=== PATIENT | male | born 1990 | race Caucasian/White ===

== ENCOUNTER 2020-09-02 23:44 | Inpatient (IN) | payer MEDICAID ==
[~2020-09-02] VITALS: Ht 162.6 cm; Wt 72.7 kg
[2020-09-03] MEDS ORDERED: acetaminophen 325mg tablet PO PRN (01:45)
[2020-09-03] MEDS: normal saline 1000ml 1,000 ML IV SCH ×5 (01:45→21:57)
[2020-09-03] MEDS ORDERED: morphine 2 MG/ML inj. syringe IV PRN ×2 (01:45)
[2020-09-03] MEDS ORDERED: magnesium hydroxide 30ml (MOM) UD suspension PO PRN (01:45)
[2020-09-03] MEDS ORDERED: ondansetron/PF 4mg/2ml inj IV PRN (01:45)
[2020-09-03] MEDS ORDERED: mag hydrox/Alum hydrox/simeth 30ml oral suspension PO PRN (01:45)
[2020-09-03] MEDS ORDERED: NO HOME MEDS (02:07)
[2020-09-03 02:48] VITALS: BP 124/74
--- NOTE | 2020-09-03 02:54 | NUR ---
Patient falling asleep. Unable to DART at this time.
--- NOTE | 2020-09-03 06:24 | NUR ---
Problems reprioritized. Patient report given, questions answered & plan of care reviewed with CARLOS Arce.
--- NOTE | 2020-09-03 06:38 | NUR ---
Patient in room KEE 347. I have received report from Simona Donald RN and had the opportunity to ask questions and assume patient care.
[2020-09-03 08:00] VITALS: BP 126/78
--- NOTE | 2020-09-03 10:00 | NUR ---
Dr Mcclure rounded on pt. MD will review CT scan from Denise Al.
[2020-09-03 11:00] VITALS: BP 120/75
[2020-09-03 12:32] LABS: BASOPHILS # (AUTO) 0.1 X10'3 (0-0.2); EOSINOPHILS # (AUTO) 0.2 X10'3 (0-0.9); EOSINOPHILS % (AUTO) 2.5 % (0-6); HEMATOCRIT 41.5 % (42.0-52.0); HEMOGLOBIN 13.9 g/dl (14.0-17.9); LYMPHOCYTES # (AUTO) 1.5 X10'3 (1.1-4.8); LYMPHOCYTES % (AUTO) 16.1 % (21-51); MEAN CORPUSCULAR HEMOGLOBIN 29.8 PG (27.0-31.0); MEAN CORPUSCULAR HGB CONC 33.4 g/dL (33.0-36.5); MEAN CORPUSCULAR VOLUME 89.3 FL (78-98); MONOCYTES # (AUTO) 0.7 X10'3 (0-0.9); MONOCYTES % (AUTO) 7.6 % (2-12); NEUTROPHILS # (AUTO) 6.7 X10'3 (1.8-7.7); NEUTROPHILS % (AUTO) 72.8 % (42-75); PLATELET COUNT 300 X10'3 (140-440); RED BLOOD COUNT 4.65 X10'6 (4.70-6.10); RED CELL DISTRIBUTION WIDTH 14.9 % (11.5-14.5); WHITE BLOOD COUNT 9.2 X10'3 (4.5-11.0)
[2020-09-03 12:47] LABS: ALANINE AMINOTRANSFERASE 22 U/L (12-78); ALBUMIN/GLOBULIN RATIO 0.8 (1.1-1.5); ALKALINE PHOSPHATASE 57 IU/L (46-116); ANION GAP 9 (8-16); ASPARTATE AMINO TRANSFERASE 19 U/L (10-37); BILIRUBIN,TOTAL 0.8 MG/DL (0.1-1.0); BLOOD UREA NITROGEN 12 MG/DL (7-18); BUN/CREATININE RATIO 12.2 (5.4-32.0); CALCIUM 8.3 MG/DL (8.5-10.1); CHLORIDE 106 MMOL/L (99-107); CREATININE 0.98 MG/DL (0.60-1.10); GLUCOSE 88 MG/DL (70-104); POTASSIUM 3.9 MMOL/L (3.5-5.1); SODIUM 141 MMOL/L (135-145); TOTAL CARBON DIOXIDE 25.6 MMOL/L (24-32); TOTAL PROTEIN 6.7 G/DL (6.4-8.2); eGFR 89 ML/MIN
[2020-09-03] MEDS ORDERED: ACET-1008 PO (15:49)
--- NOTE | 2020-09-03 16:02 | NUR ---
D/C order on hold until tomorrow. Pt needs CT scan tomorrow morning. Dr annalisa isabel.
--- NOTE | 2020-09-03 17:44 | NUR ---
PAGER ID: [phone] MESSAGE: Karey med/surg [id number]. Pt: Conrad. Rm: 347-B Smokes 1 pck of cigarette/day. Requesting Nicotine patch. thanks
--- NOTE | 2020-09-03 18:56 | NUR ---
Problems reprioritized. Patient report given, questions answered & plan of care reviewed with CARLOS Weaver.
[2020-09-03 19:00] VITALS: BP 108/75
[2020-09-03] MEDS: diatr meglu/diatrizoate 30ml oral sol.-(3 dose) bottle PO SCH (21:13)
[2020-09-04] VITALS: BP 119/63
[2020-09-04 05:59] LABS: BASOPHILS # (AUTO) 0.1 X10'3 (0-0.2); BASOPHILS % (AUTO) 0.9 % (0-1); EOSINOPHILS # (AUTO) 0.3 X10'3 (0-0.9); EOSINOPHILS % (AUTO) 2.9 % (0-6); HEMOGLOBIN 13.8 g/dl (14.0-17.9); LYMPHOCYTES # (AUTO) 1.8 X10'3 (1.1-4.8); LYMPHOCYTES % (AUTO) 19.4 % (21-51); MEAN CORPUSCULAR HEMOGLOBIN 29.9 PG (27.0-31.0); MEAN CORPUSCULAR HGB CONC 33.6 g/dL (33.0-36.5); MEAN CORPUSCULAR VOLUME 88.9 FL (78-98); MEAN PLATELET VOLUME 7.4 FL (7.4-10.4); MONOCYTES # (AUTO) 0.7 X10'3 (0-0.9); MONOCYTES % (AUTO) 7.4 % (2-12); NEUTROPHILS # (AUTO) 6.3 X10'3 (1.8-7.7); NEUTROPHILS % (AUTO) 69.4 % (42-75); PLATELET COUNT 303 X10'3 (140-440); RED BLOOD COUNT 4.61 X10'6 (4.70-6.10); RED CELL DISTRIBUTION WIDTH 14.8 % (11.5-14.5); WHITE BLOOD COUNT 9.1 X10'3 (4.5-11.0)
[2020-09-04 06:19] LABS: ALBUMIN 2.9 G/DL (3.4-5.0); ANION GAP 9 (8-16); BLOOD UREA NITROGEN 16 MG/DL (7-18); BUN/CREATININE RATIO 16.5 (5.4-32.0); CALCIUM 8.5 MG/DL (8.5-10.1); CHLORIDE 107 MMOL/L (99-107); CREATININE 0.97 MG/DL (0.60-1.10); GLUCOSE 91 MG/DL (70-104); POTASSIUM 4.2 MMOL/L (3.5-5.1); SODIUM 141 MMOL/L (135-145); TOTAL CARBON DIOXIDE 25.2 MMOL/L (24-32); eGFR 90 ML/MIN
--- NOTE | 2020-09-04 06:22 | NUR ---
Problems reprioritized. Patient report given, questions answered & plan of care reviewed with Gabriela GONZALEZ. Addendum: 09/04/20 at 0622 by Meg Lobato RN Amended: Links added.
[2020-09-04] MEDS: diatr meglu/diatrizoate 30ml oral sol.-(3 dose) bottle PO SCH ×2 (07:13→10:22)
[2020-09-04 07:30] VITALS: BP 126/62
[2020-09-04] MEDS ORDERED: nicotine 14mg patch - 24hr TD SCH (08:00)
[2020-09-04] MEDS ORDERED: iohexol 300mg/ml 100ml inj. ONE (10:22)
--- NOTE | 2020-09-04 11:08 | NUR ---
PAGER ID: [phone] MESSAGE: Yoan Martines 347B: CT resulted. patient requesting to DC sincere he has a 3hr drive home. thanks! [phone]
--- NOTE | 2020-09-04 12:27 | NUR ---
Patient stable and appropriate for discharge, IV removed, all belongings taken from room, new prescriptions transmitted to [facility] in [place]. [facility] transportation was in route and patient walked himself out of the hospital. Security attempted to find patient and he was gone already.
== END 2020-09-04 12:10 | disposition home or self-care (01) | DRG 247 ==
LOC: ER 23:44 → ED HOLD 09-03 01:44 → OBSVTOIN 09-03 01:44 → SUR 3N 09-03 02:20
PROVIDERS: ADMIT Family Medicine; ATTEND Internal Medicine
PROC: BW211ZZ Computerized Tomography (CT Scan) of Abdomen and Pelvis using Low Osmolar Contrast (ICD-10-PCS; principal; 2020-09-04)
DX: K56.1 Intussusception (principal); F17.200 Nicotine dependence, unspecified, uncomplicated
CPT/HCPCS: 36415; 74176; 74177; 80048; 80053; 85025; 87081; 99285; G0378; J7030; Q9963; Q9967

== ENCOUNTER 2021-05-05 01:34 | Inpatient (IN) | payer MEDICAID ==
[~2021-05-05] VITALS: Ht 162.6 cm; Wt 68.2 kg
[2021-05-05] VITALS (9 sets, daily range): BP systolic 125–139; BP diastolic 78–92
[2021-05-05] MEDS ORDERED: normal saline 1000ML IV soln IVB ONE ×2 (02:40→07:00)
[2021-05-05] MEDS ORDERED: morphine 4 MG/ML inj SYRINge IV ONE (02:40)
[2021-05-05] MEDS ORDERED: ketorolac tromethamine 15mg/ml inj. IV ONE (02:40)
[2021-05-05] MEDS ORDERED: IOHEXOL 12MG/ML oral solution 500 ML BOTTLE PO ONE (02:50)
[2021-05-05 02:55] LABS: BASOPHILS # (AUTO) 0.1 X10'3 (0-0.2); BASOPHILS % (AUTO) 0.8 % (0-1); EOSINOPHILS # (AUTO) 0.1 X10'3 (0-0.9); EOSINOPHILS % (AUTO) 1.2 % (0-6); HEMATOCRIT 41.3 % (42.0-52.0); HEMOGLOBIN 14.1 g/dl (14.0-17.9); LYMPHOCYTES # (AUTO) 1.8 X10'3 (1.1-4.8); LYMPHOCYTES % (AUTO) 17.8 % (21-51); MEAN CORPUSCULAR HEMOGLOBIN 31.6 PG (27.0-31.0); MEAN CORPUSCULAR VOLUME 92.8 FL (78-98); MEAN PLATELET VOLUME 7.2 FL (7.4-10.4); MONOCYTES # (AUTO) 0.7 X10'3 (0-0.9); MONOCYTES % (AUTO) 6.6 % (2-12); NEUTROPHILS # (AUTO) 7.6 X10'3 (1.8-7.7); NEUTROPHILS % (AUTO) 73.6 % (42-75); PLATELET COUNT 292 X10'3 (140-440); RED BLOOD COUNT 4.45 X10'6 (4.70-6.10); RED CELL DISTRIBUTION WIDTH 14.2 % (11.5-14.5); WHITE BLOOD COUNT 10.3 X10'3 (4.5-11.0)
[2021-05-05 03:09] LABS: ALANINE AMINOTRANSFERASE 21 U/L (12-78); ALBUMIN 3.6 G/DL (3.4-5.0); ALKALINE PHOSPHATASE 62 IU/L (46-116); ANION GAP 10 (8-16); ASPARTATE AMINO TRANSFERASE 21 U/L (10-37); BILIRUBIN,TOTAL 0.7 MG/DL (0.1-1.0); BLOOD UREA NITROGEN 11 MG/DL (7-18); BUN/CREATININE RATIO 9.5 (5.4-32.0); CALCIUM 8.4 MG/DL (8.5-10.1); CHLORIDE 103 MMOL/L (99-107); CREATININE 1.16 MG/DL (0.60-1.10); GLUCOSE 122 MG/DL (70-104); LIPASE < 50 U/L (73-393); POTASSIUM 4.2 MMOL/L (3.5-5.1); SODIUM 138 MMOL/L (135-145); TOTAL CARBON DIOXIDE 25.5 MMOL/L (24-32); TOTAL PROTEIN 7.3 G/DL (6.4-8.2); eGFR 73 ML/MIN
[2021-05-05] MEDS ORDERED: iohexol 300mg/ml 100ml inj. ONE (04:46)
[2021-05-05] MEDS ORDERED: morphine 2 MG/ML inj. syringe IV PRN ×4 (07:00→15:55)
[2021-05-05] MEDS ORDERED: piperacillin/tazo 3.375gm/50ml 50 ML IV ONE (07:35)
[2021-05-05 07:47] LABS: PARTIAL THROMBOPLASTIN TIME 27 SECONDS (22-32)
[2021-05-05] MEDS ORDERED: mag hydrox/Alum hydrox/simeth 30ml oral suspension PO PRN (08:15)
[2021-05-05] MEDS ORDERED: acetaminophen 325mg tablet PO PRN ×2 (08:15)
[2021-05-05] MEDS ORDERED: magnesium hydroxide 30ml (MOM) UD suspension PO PRN (08:15)
[2021-05-05] MEDS ORDERED: ondansetron/PF 4mg/2ml inj IV PRN ×2 (08:15→15:55)
[2021-05-05] MEDS: dextrose 5%-1/2 normal saline 1,000 ML IV SCH ×2 (09:40→22:52)
--- NOTE | 2021-05-05 11:45 | NUR ---
Pt arrived to surgical floor via wheelchair
--- NOTE | 2021-05-05 11:46 | NUR ---
report received from Rhett GONZALEZ in ER
[2021-05-05] MEDS ORDERED: NO HOME MEDS (12:51)
[2021-05-05] MEDS ORDERED: proCHLORperazine 10 MG/2 ml inj IV PRN (15:55)
[2021-05-05] MEDS ORDERED: ringers solution, lacted 1,000 ML IV SCH (15:55)
[2021-05-05] MEDS ORDERED: meperidine/PF 25mg/ml syringe IV PRN ×3 (15:55)
[2021-05-05] MEDS ORDERED: morphine 4 MG/ML inj SYRINge IV PRN (15:55)
[2021-05-05] MEDS ORDERED: labetalol 20mg/4ml (5mg/ml) syringe IV PRN (15:55)
[2021-05-05] MEDS ORDERED: acetaminophen 1,000mg/100ml IV 100 ML IV PRN (15:55)
[2021-05-05] MEDS ORDERED: hydrALAZINE 20mg/ml inj. IV PRN (15:55)
--- NOTE | 2021-05-05 16:22 | NUR ---
Pt transferred to OR via hospital bed
[2021-05-05] MEDS ORDERED: midazolam 1 mg/ML 2ml injection ONE (17:26)
[2021-05-05] MEDS ORDERED: fentaNYL /PF 50mcg/ml 5ml ampule ONE (17:27)
[2021-05-05] MEDS ORDERED: BUPIVACAINE liposomal/PF 13.3 MG/ML vial IM ONE (17:49)
[2021-05-05] MEDS ORDERED: BUPIVAcaine/PF 2.5mg/ml (0.25%) 10ml vial ONE (17:49)
--- NOTE | 2021-05-05 18:09 | NUR ---
Problems reprioritized. Patient report given, questions answered & plan of care reviewed with CARLOS Alicea.
[2021-05-05] MEDS ORDERED: propofol inj 20 ML IV ONE (18:30)
[2021-05-05] MEDS ORDERED: dexamethasone sod phosphate 4mg/ml inj. ONE (18:30)
[2021-05-05] MEDS ORDERED: ceFAZolin 1000mg inj ONE ×2 (18:30)
[2021-05-05] MEDS ORDERED: glycopyrrolate 0.2mg/ml inj ONE (18:30)
[2021-05-05] MEDS ORDERED: ondansetron/PF 4mg/2ml inj ONE (18:30)
[2021-05-05] MEDS ORDERED: LIDOcaine 2% (20mg/ml) 5ml vial ONE (18:30)
[2021-05-05] MEDS ORDERED: rocuronium 10mg/ml inj IV ONE (18:30)
[2021-05-05] MEDS ORDERED: neostigmine methylsulfate 1 MG/ML 10ml vial ONE (18:31)
--- NOTE | 2021-05-05 18:44 | NUR ---
Patient arrived via hospital bed from OR. ExLap and lymph node biopsy. On 10L Mask with 20G PIV to R.AC LR running at 100ml/hr. VSS. Dressing with noted drainage, circled. Will continue to monitor.
--- NOTE | 2021-05-05 19:34 | NUR ---
Patient meets criteria for discharge. Pain controlled with demerol. VSS. Drainage as noted on dressing. Sent up to 355A with all belongings.
--- NOTE | 2021-05-05 19:50 | NUR ---
Received patient report from conventional machinist Angelika. Patient to follow.
[2021-05-05] MEDS: docusate sod 100mg capsule PO SCH (20:00)
--- NOTE | 2021-05-05 20:00 | NUR ---
Patient arrived to floor via hospital bed. Patient not in any pain/distress, at this time. Post op VS initiated.
[2021-05-06] VITALS (10 sets, daily range): BP systolic 113–135; BP diastolic 70–81
--- NOTE | 2021-05-06 | NUR ---
Unfortunately the Vitals machine had become unplugged and all Post op VS lost. They were within normal range as being checked q hour. 4 hr VS started over.
[2021-05-06] MEDS: dextrose 5%-1/2 normal saline 1,000 ML IV SCH ×2 (04:15→13:03)
--- NOTE | 2021-05-06 06:30 | NUR ---
Problems reprioritized. Patient report given, questions answered & plan of care reviewed with Bernarda GONZALEZ.
--- NOTE | 2021-05-06 06:32 | NUR ---
Patient in room KEE 355. I have received report from CARLOS Alicea and had the opportunity to ask questions and assume patient care.
[2021-05-06 06:34] LABS: BASOPHILS % (AUTO) 0.1 % (0-1); EOSINOPHILS % (AUTO) 0 % (0-6); HEMATOCRIT 41.6 % (42.0-52.0); HEMOGLOBIN 14.4 g/dl (14.0-17.9); LYMPHOCYTES # (AUTO) 0.9 X10'3 (1.1-4.8); LYMPHOCYTES % (AUTO) 7.4 % (21-51); MEAN CORPUSCULAR HEMOGLOBIN 32.2 PG (27.0-31.0); MEAN CORPUSCULAR HGB CONC 34.6 g/dL (33.0-36.5); MEAN PLATELET VOLUME 7.7 FL (7.4-10.4); MONOCYTES # (AUTO) 0.7 X10'3 (0-0.9); MONOCYTES % (AUTO) 5.8 % (2-12); NEUTROPHILS # (AUTO) 10.7 X10'3 (1.8-7.7); NEUTROPHILS % (AUTO) 86.7 % (42-75); PLATELET COUNT 279 X10'3 (140-440); RED BLOOD COUNT 4.47 X10'6 (4.70-6.10); RED CELL DISTRIBUTION WIDTH 14.3 % (11.5-14.5); WHITE BLOOD COUNT 12.3 X10'3 (4.5-11.0)
[2021-05-06 06:41] LABS: ALBUMIN 3.2 G/DL (3.4-5.0); ANION GAP 8 (8-16); BLOOD UREA NITROGEN 7 MG/DL (7-18); BUN/CREATININE RATIO 7.6 (5.4-32.0); CALCIUM 8.4 MG/DL (8.5-10.1); CHLORIDE 106 MMOL/L (99-107); CREATININE 0.92 MG/DL (0.60-1.10); GLUCOSE 136 MG/DL (70-104); POTASSIUM 4.6 MMOL/L (3.5-5.1); SODIUM 140 MMOL/L (135-145); eGFR > 90 ML/MIN
[2021-05-06] MEDS: docusate sod 100mg capsule PO SCH ×2 (07:26→20:40)
[2021-05-06] MEDS: HYDROcodone/acetaminophen 10/325mg tab PO PRN ×3 (07:28→20:42)
[2021-05-06] MEDS: nicotine 21mg patch - 24 hr TD SCH (12:52)
--- NOTE | 2021-05-06 18:26 | NUR ---
Problems reprioritized. Patient report given, questions answered & plan of care reviewed with CARLOS Mahoney.
--- NOTE | 2021-05-06 18:54 | NUR ---
Patient in room KEE 355. I have received report from CHELSEY GONZALEZ and had the opportunity to ask questions and assume patient care.
[2021-05-07] VITALS: BP 128/80
[2021-05-07] MEDS: dextrose 5%-1/2 normal saline 1,000 ML IV SCH ×3 (00:38→16:31)
--- NOTE | 2021-05-07 04:22 | NUR ---
Attempted several times to ambulate patient but patient declined. Post-op education was provided but patient was non-compliant.
--- NOTE | 2021-05-07 05:31 | NUR ---
Student documentation: I have reviewed and agree with all interventions, assessments performed and documented by RIMMA(STUDENT).
--- NOTE | 2021-05-07 05:32 | NUR ---
Student Medication Administration: For this medication-pass time frame, all medication were reviewed, dispensed, administered and documented per hospital policy by RIMMA(STUDENT).
--- NOTE | 2021-05-07 06:45 | NUR ---
Problems reprioritized. Patient report given, questions answered & plan of care reviewed with INDIA GONZALEZ.
[2021-05-07 06:47] LABS: BASOPHILS % (AUTO) 0.5 % (0-1); EOSINOPHILS # (AUTO) 0.2 X10'3 (0-0.9); EOSINOPHILS % (AUTO) 1.9 % (0-6); HEMATOCRIT 41.2 % (42.0-52.0); LYMPHOCYTES % (AUTO) 24.9 % (21-51); MEAN CORPUSCULAR HEMOGLOBIN 31.9 PG (27.0-31.0); MEAN CORPUSCULAR HGB CONC 34.1 g/dL (33.0-36.5); MEAN CORPUSCULAR VOLUME 93.5 FL (78-98); MEAN PLATELET VOLUME 7.7 FL (7.4-10.4); MONOCYTES # (AUTO) 0.7 X10'3 (0-0.9); MONOCYTES % (AUTO) 9.2 % (2-12); NEUTROPHILS # (AUTO) 5.1 X10'3 (1.8-7.7); NEUTROPHILS % (AUTO) 63.5 % (42-75); PLATELET COUNT 267 X10'3 (140-440); RED BLOOD COUNT 4.41 X10'6 (4.70-6.10); RED CELL DISTRIBUTION WIDTH 14.5 % (11.5-14.5); WHITE BLOOD COUNT 8.1 X10'3 (4.5-11.0)
[2021-05-07 07:00] VITALS: BP 131/88
[2021-05-07 07:00] LABS: BLOOD UREA NITROGEN 8 MG/DL (7-18); CHLORIDE 105 MMOL/L (99-107); CREATININE 0.89 MG/DL (0.60-1.10); GLUCOSE 103 MG/DL (70-104); POTASSIUM 3.6 MMOL/L (3.5-5.1); SODIUM 140 MMOL/L (135-145); eGFR > 90 ML/MIN
[2021-05-07 07:01] LABS: ALBUMIN 2.9 G/DL (3.4-5.0); ANION GAP 10 (8-16); CALCIUM 8.2 MG/DL (8.5-10.1); TOTAL CARBON DIOXIDE 25.3 MMOL/L (24-32)
--- NOTE | 2021-05-07 07:02 | NUR ---
Patient in room KEE 355. I have received report from Maru GONZALEZ and had the opportunity to ask questions and assume patient care.
[2021-05-07] MEDS: docusate sod 100mg capsule PO SCH ×2 (07:38→20:10)
[2021-05-07] MEDS: nicotine 21mg patch - 24 hr TD SCH (07:38)
[2021-05-07] MEDS: HYDROcodone/acetaminophen 5mg/325mg tablet PO PRN ×2 (10:15→16:31)
[2021-05-07] MEDS ORDERED: HYDR-3965 PO (10:53)
[2021-05-07 11:00] VITALS: BP 128/91
--- NOTE | 2021-05-07 13:57 | NUR ---
PAGER ID: [phone] MESSAGE: Valeria surg [id number] Re: Conrad 355B Dr Clement wants patient to stay until tomorrow per technical inspector. I also called and he would like him to stay
--- NOTE | 2021-05-07 15:30 | NUR ---
PAGER ID: [phone] MESSAGE: Valeria-Surg [id number] Re: Conrad BanerjeeB Can patient be saline locked?
[2021-05-07 18:00] VITALS: BP 117/81
--- NOTE | 2021-05-07 18:30 | NUR ---
Problems reprioritized. Patient report given, questions answered & plan of care reviewed with Prudence RN.
--- NOTE | 2021-05-07 18:59 | NUR ---
Patient in room KEE 355. I have received report from INDIA GONZALEZ and had the opportunity to ask questions and assume patient care.
[2021-05-07] MEDS ORDERED: enoxaparin 40mg/0.4ml syringe SUBCUT SCH (20:00)
--- NOTE | 2021-05-08 03:35 | NUR ---
Pt has been noncompliant with care plan to ambulate. Education provided and will continue to encourage patient to get out of bed.
[2021-05-08 05:49] LABS: BASOPHILS % (AUTO) 0.6 % (0-1); EOSINOPHILS # (AUTO) 0.3 X10'3 (0-0.9); EOSINOPHILS % (AUTO) 3.5 % (0-6); HEMATOCRIT 46.9 % (42.0-52.0); HEMOGLOBIN 15.9 g/dl (14.0-17.9); LYMPHOCYTES # (AUTO) 1.7 X10'3 (1.1-4.8); LYMPHOCYTES % (AUTO) 21.6 % (21-51); MEAN CORPUSCULAR HGB CONC 33.9 g/dL (33.0-36.5); MEAN CORPUSCULAR VOLUME 94.3 FL (78-98); MEAN PLATELET VOLUME 7.7 FL (7.4-10.4); MONOCYTES # (AUTO) 0.8 X10'3 (0-0.9); NEUTROPHILS % (AUTO) 64.3 % (42-75); PLATELET COUNT 274 X10'3 (140-440); RED BLOOD COUNT 4.98 X10'6 (4.70-6.10); RED CELL DISTRIBUTION WIDTH 14.5 % (11.5-14.5); WHITE BLOOD COUNT 7.8 X10'3 (4.5-11.0)
[2021-05-08 06:02] LABS: ALBUMIN 3.1 G/DL (3.4-5.0); ANION GAP 9 (8-16); BLOOD UREA NITROGEN 11 MG/DL (7-18); BUN/CREATININE RATIO 12.1 (5.4-32.0); CALCIUM 8.8 MG/DL (8.5-10.1); CHLORIDE 102 MMOL/L (99-107); CREATININE 0.91 MG/DL (0.60-1.10); GLUCOSE 96 MG/DL (70-104); POTASSIUM 3.9 MMOL/L (3.5-5.1); SODIUM 136 MMOL/L (135-145); TOTAL CARBON DIOXIDE 25.5 MMOL/L (24-32); eGFR > 90 ML/MIN
--- NOTE | 2021-05-08 06:12 | NUR ---
Student documentation: I have reviewed and agree with all interventions, assessments performed and documented by RIMMA (STUDENT).
--- NOTE | 2021-05-08 06:12 | NUR ---
Student Medication Administration: For this medication-pass time frame, all medication were reviewed, dispensed, administered and documented per hospital policy by RIMMA (STUDENT).
--- NOTE | 2021-05-08 06:42 | NUR ---
Problems reprioritized. Patient report given, questions answered & plan of care reviewed with INDIA GONZALEZ.
[2021-05-08 07:00] VITALS: BP 136/88
[2021-05-08] MEDS: docusate sod 100mg capsule PO SCH (09:50)
[2021-05-08] MEDS: nicotine 21mg patch - 24 hr TD SCH (09:51)
[2021-05-08 11:00] VITALS: BP 131/85
--- NOTE | 2021-05-08 12:46 | NUR ---
Spoke to Dr Clement regarding patients discharge. Patient states he has passed a small amount of gas, still has hypo BS. no Bowel movement. Patient states he feels a little distended. I don't notice any distention and patient denies being nauseated and has been eating 100% of his Full liquid diet. Patient really wants to be discharged. Per Dr Clement if patient wants to go ok to discharge.
--- NOTE | 2021-05-08 12:48 | NUR ---
PAGER ID: [phone] MESSAGE: Valeria-Surg [id number] Re: 355A Martines Per Dr Clement ok to discharge, I will discharge
--- NOTE | 2021-05-08 13:26 | NUR ---
PAGER ID: [phone] MESSAGE: Valeria-Surg [id number] Re; Conrad [id number] please call re: discharge patient is very agitated. Addendum: 05/08/21 at 1330 by Valeria Hall RN Dr Lawrence aware aware patient is very agitated wants to leave has signed his paper work for discharge but now states his brother can't pick him up and he has no ride. Patient was stomping down the hallway with IV in place and was going to walk to [place]. I advised patient I am working with case management to try and get him a ride. Patient is being very agitated and verbally aggressive with staff. Patients IV is out and I offered him Tylenol but he refused and said he is fine. Per Dr Lawrence ok to let him go if he wants.
--- NOTE | 2021-05-08 13:30 | NUR ---
Patients IV dc'd by Romy GONZALEZ and patient sitting in hallway waiting to see if we can find him a ride. Patients discharge instructions reviewed with patient and patient verbalizes understanding. Patient aware pain medication at [facility] on [address] per his request. Offered patient Tylenol for pain and he refused he is fine he stated. Patient called his brother back and his brother is coming to get him. Case managment aware to cancel [facility] ride. Patient was escorted to the lobby to wait for his brother due to he does not want to be on the floor again
== END 2021-05-08 13:45 | disposition home or self-care (01) | DRG 229 ==
LOC: ER 01:35 → ED HOLD 08:14 → SUR 3N 11:50
PROVIDERS: ADMIT Internal Medicine; ATTEND Internal Medicine
PROC: BW211ZZ Computerized Tomography (CT Scan) of Abdomen and Pelvis using Low Osmolar Contrast (ICD-10-PCS; 2021-05-05)
PROC: 07BB0ZX Excision of Mesenteric Lymphatic, Open Approach, Diagnostic (ICD-10-PCS; principal; 2021-05-05 17:14)
DX: K56.609 Unspecified intestinal obstruction, unspecified as to partial versus complete obstruction (principal); F17.210 Nicotine dependence, cigarettes, uncomplicated; Z20.822 Contact with and (suspected) exposure to COVID-19; K56.7 Ileus, unspecified; Z90.49 Acquired absence of other specified parts of digestive tract
CPT/HCPCS: 36415; 74018; 74177; 80048; 80053; 82948; 83690; 83735; 85025; 85610; 85730; 86885; 86900; 86901; 87081; 87635; 93005; 99285; A4618; A7000; C1758; C9290; G0378; J0690; J1100; J1650; J1885; J2001; J2175; J2250; J2270; J2405; J2543; J2704; J2710; J3010; J3490; J7030; J7120; Q9967

== ENCOUNTER 2021-05-14 08:20 | Emergency (ER) | payer MEDICAID ==
[~2021-05-14] VITALS: Ht 162.6 cm; Wt 70.5 kg
[~2021-05-14 08:20] MED LIST: HYDR-3965 PO
[2021-05-14 08:23] VITALS: BP 139/81
== END 2021-05-14 09:17 | disposition home or self-care (01) ==
LOC: ER 08:21
DX: Z48.02 Encounter for removal of sutures (principal); K56.1 Intussusception; F15.90 Other stimulant use, unspecified, uncomplicated; Z90.89 Acquired absence of other organs; Z72.89 Other problems related to lifestyle; Z79.899 Other long term (current) drug therapy
CPT/HCPCS: 99281